=== PATIENT | male | born 1970 | race Caucasian/White ===

== ENCOUNTER 2020-11-12 20:43 | Emergency (ER) | payer OTHER ==
[2020-11-12] MEDS ORDERED: MOTRIN 400 MG PO ONE (21:08)
[2020-11-12] MEDS ORDERED: TYLENOL EXTRA STRENGTH 500 MG PO ONE (21:09)
[2020-11-12] MEDS ORDERED: TYLENOL EXTRA STRENGTH 500 MG ONE (21:10)
[2020-11-12] MEDS ORDERED: MOTRIN 400 MG ONE (21:10)
--- NOTE | 2020-11-12 21:26 | ERPHSYRPT ---
- History of Present Illness Source: patient Patient Subjective Stated Complaint: pt states "I have had a fever for the past 2 days." Triage Nursing Assessment: pt ambulated into the er; pt is axo x4; c/o fever; pt states 10/10 pain to the throat; pt states that fever began tuesday; pt states that the highest tempature at home was 103.9; pt states that he has taken tylenol; pt states that last dose of tylenol was at 1400; pt states that his throat hit to swallow; pt denies N/V/D; throat is swollen, red; clear lung sounds in all lobes; pt state that he has not had a BM since tuesday; active bowel sound in all quads; febrile; pt states he has chills Physician History: 50 [address]/fever/chills x 2 days. Pt denies cough/coryza/N/V/D/abdominal pain/stiff neck. No one else in family is ill. Pt did not get CV19 vaccine. Timing/Duration: yesterday Fever Severity: moderate Fever Therapy PROCUREMENT COORDINATOR: Acetaminophen Associated Symptoms: sore throat, No abdominal pain, No chest pain, No confusion, No cough, No diaphoresis, No headache, No muscle aches, No nausea/vomiting, No rash, No rhinorrhea, No shortness of breath, No stiff neck, No syncope, No weakness Allergies/Adverse Reactions: No Known Drug Allergies Allergy (Unverified 11/12/20 20:50) Hx Tetanus, Diphtheria Vaccination/Date Given: No Hx Influenza Vaccination/Date Given: No Hx Pneumococcal Vaccination/Date Given: No Travel Risk - International Travel Have you traveled outside of the country in past 3 weeks: No - Coronavirus Screening Are you exhibiting any of the following symptoms?: Yes Symptoms: Fever, Headaches/Body Aches/Fatigue Close contact with a COVID-19 positive Pt in past 14-21 Days: No - Vaccine Status Have you recieved a Covid-19 vaccination: No - Review of Systems Constitutional: No Symptoms, Fever, Chills Eyes: No Symptoms Ears, Nose, & Throat: No Symptoms, Throat Pain Respiratory: No Symptoms Cardiac: No Symptoms Abdominal/Gastrointestinal: No Symptoms Genitourinary Symptoms: No Symptoms Musculoskeletal: No Symptoms Skin: No Symptoms Neurological: No Symptoms Psychological: No Symptoms Endocrine: No Symptoms Hematologic/Lymphatic: No Symptoms, Easy Bruising - Past Medical History Pertinent Past Medical History: No Neurological History: No Pertinent History ENT History: No Pertinent History Cardiac History: No Pertinent History Respiratory History: No Pertinent History Endocrine Medical History: No Pertinent History Musculoskeletal History: No Pertinent History GI Medical History: No Pertinent History History: No Pertinent History Psycho-Social History: No Pertinent History Male Reproductive Disorders: No Pertinent History - Past Surgical History Past Surgical History: No Neuro Surgical History: No Pertinent History Respiratory: No Pertinent History Gastrointestinal: No Pertinent History Genitourinary: No Pertinent History Musculoskeletal: No Pertinent History Male Surgical History: No Pertinent History - Social History Smoking Status: Never smoker Exposure to second hand smoke: No Drug Use: none Patient Lives Alone: No Significant Family History: no pertinent family hx - Nursing Vital Signs Nursing Vital Signs: Initial Vital Signs Temperature 102.5 F 11/12/20 20:50 Pulse Rate 96 H 11/12/20 20:50 Respiratory Rate 16 11/12/20 20:50 Blood Pressure 127/84 11/12/20 20:50 O2 Sat by Pulse Oximetry 95 11/12/20 20:50 Pain Scale Pain Intensity 5 Febrile - Physical Exam General Appearance: no apparent distress Eye Exam: PERRL/EOMI ENT Exam: no apparent trauma, TMs normal, pharyngeal erythema, airway intact, No trismus, No muffled/hoarse voice Neck Exam: normal inspection, non-tender, supple, full range of motion, trachea midline Respiratory Exam: normal breath sounds, lungs clear, no respiratory distress Cardiovascular/Chest Exam: normal heart sounds, regular rate/rhythm, normal peripheral pulses, No murmur Gastrointestinal/Abdominal Exam: soft, non tender, no distention Extremity Exam: non-tender, normal range of motion, normal inspection, normal capillary refill Neurologic Exam: alert, oriented x 3, cooperative, 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 as tested, normal mood/affect, nml cerebellar function, nml station & gait, sensation nml, No motor deficits, No sensory deficit Skin Exam: normal color, warm, dry Lymphatic: No adenopathy SpO2 Interpretation: normal SpO2: 95 O2 Delivery: Room Air - Course Nursing assessment & vital signs reviewed: Yes Ordered Tests: Active Orders 24 hr Category Date Time Status IV Insertion STAT Care 11/12/20 21:17 Completed Medication Summary Discontinued Medications Generic Name Dose Route Start Last Admin Trade Name Freq PRN Reason Stop Dose Admin Acetaminophen 1,000 mg 11/12/20 21:09 11/12/20 21:11 Tylenol Extra Strength 500 Mg PO 11/12/20 21:10 1,000 mg STAT ONE Administration Acetaminophen Confirm 11/12/20 21:10 Tylenol Extra Strength 500 Mg Administered 11/12/20 21:11 Dose 1,000 mg .ROUTE .STK-MED ONE Ceftriaxone Sodium/Dextrose 1 g in 50 mls @ 100 mls/hr 11/12/20 22:11 11/12/20 22:15 Rocephin 1 Gm-D5w 50 Ml Bag IV 11/12/20 22:40 100 ml/hr STAT STA 100 mls/hr Administration Ceftriaxone Sodium/Dextrose Confirm 11/12/20 22:12 Rocephin 1 Gm-D5w 50 Ml Bag Administered 11/12/20 22:13 Dose 1 g in 50 mls @ ud IV .STK-MED ONE Ibuprofen 400 mg 11/12/20 21:08 11/12/20 21:10 Motrin 400 Mg PO 11/12/20 21:09 400 mg STAT ONE Administration Ibuprofen Confirm 11/12/20 21:10 Motrin 400 Mg Administered 11/12/20 21:11 Dose 400 mg .ROUTE .STK-MED ONE Lab/Rad Data: Laboratory Results 11/12/20 Range/Units 21:17 Group A Strep Antibody DETECTED (NEGATIVE) - Progress Progress: improved Progress Note: 11/12/20 22:12 400mg po Motrin/1gm po Tylenol 1gm IV rocephin Counseled pt/family regarding: lab results, diagnosis, need for follow-up - Departure Departure Disposition: Home Clinical Impression: Strep pharyngitis Condition: Stable Critical Care Time: No Referrals: DOCTOR,NO FAMILY [Primary Care Provider] - Instructions: Strep Throat (DC), Fever, Adult (DC) Additional Instructions: Rest/fluids/Motrin/Tylenol Keflex three times a day for 1 week Prescriptions: Cephalexin Mh 500 mg [Keflex 500 mg] 500 mg PO TID #21 capsule
[2020-11-12] MEDS ORDERED: ROCEPHIN 1 Gm-D5w 50 ml Bag** 1 G/50 ML IVPB IV STA (22:11)
[2020-11-12] MEDS ORDERED: ROCEPHIN 1 Gm-D5w 50 ml Bag** 1 G/50 ML IVPB IV ONE (22:12)
[2020-11-12 22:24] VITALS: BP 132/73; PULSE 80
[2020-11-13 03:50] VITALS: O2SAT 95
== END 2020-11-12 22:29 | disposition home or self-care (01) ==
LOC: ED 20:43
DX: J02.0 Streptococcal pharyngitis (principal)
CPT/HCPCS: 36000; 87651; 96365; 99284; J0696; A9270-GY

== ENCOUNTER 2021-11-30 05:54 | Day surgery (SDC) | payer OTHER ==
[2021-11-30] MEDS ORDERED: Lactated Ringers 1,000 ML IV SCH (06:30)
[2021-11-30] MEDS ORDERED: Versed 2 MG/2 ML Injection ONE (07:13)
[2021-11-30] MEDS ORDERED: DIPRIVAN 200 MG/20 ML IV ONE ×2 (07:13→07:30)
[2021-11-30 08:14] VITALS: BP 120/92; PULSE 56; O2SAT 96
--- NOTE | 2021-11-30 12:49 | OP ---
SURGERY DATE/TIME: 11/30/2021 0719 PREOPERATIVE DIAGNOSIS: Screening exam. POSTOPERATIVE DIAGNOSIS: Normal colon. PROCEDURE: Colonoscopy. SURGEON: Dr. Romero Denny. ANESTHESIA: MAC. Medications given by anesthesia department. HISTORY: The patient is a 51-year-old white male patient presenting now for screening colonoscopy. The patient was appraised of the risks of the procedure including the risk of perforation, phlebitis, untoward reaction to medication, bleeding and missed lesions. The patient verbalized his understanding and desired to have the procedure performed. DESCRIPTION OF PROCEDURE: The patient was given the medications by the anesthesia department. He had continuous pulse oximetry, ECG monitoring, intermittent blood pressure monitoring during the examination. He was placed in the left lateral decubitus position. A digital rectal examination was performed and revealed normal anal sphincter tone, no masses and normal prostate. The flexible Olympus pediatric colonoscope was used to intubate the rectum. A view of the colon was developed sequentially to the cecum. Upon insertion and withdrawal, including a retroflex view in the rectum, no mucosal lesions were encountered. The scope was removed from the patient who tolerated the procedure well and was sent back to OP recovery in good condition. The prep was noted to be fair to good.
== END 2021-11-30 08:24 | disposition home or self-care (01) ==
LOC: SDC 05:54
PROVIDERS: ATTEND Family Medicine
DX: Z12.11 Encounter for screening for malignant neoplasm of colon (principal)
CPT/HCPCS: J2250; J2704